=== PATIENT | female | born 1960 | race Caucasian/White ===

== ENCOUNTER 2019-12-14 18:25 | Emergency (ER) | payer OTHER, SELFPAY ==
[~2019-12-14 18:25] MED LIST: Iopamidol 370 76% 100 ML VIAL ONE
[2019-12-14] MEDS ORDERED: Fentanyl 100 MCG/2 ML VIAL ONE ×3 (19:09→21:06)
[2019-12-14] MEDS ORDERED: Ondansetron PF 4 MG/2 ML Vial ONE (19:09)
[2019-12-14] MEDS ORDERED: Sodium Chloride 0.9% 1,000 ML ONE ×2 (19:09→21:36)
[2019-12-14 19:18] LABS: PTT 25.7 sec (22.9-36.1); Prothrombin Time 12.9 sec (12.0-14.7)
[2019-12-14 19:27] LABS: Anisocytosis SLIGHT = 6-15 cells (100X) (0-5/hpf); Band 4 % (5-11); Hemoglobin 11.7 g/dL (12.0-16.0); Hypochromia SLIGHT = 6-15 cells (100X) (0-5/hpf); Lymphocytes 17 % (21-51); MDiff Complete? YES; Mean Corpuscular HGB CONC 32.5 g/dL (32.0-36.0); Mean Corpuscular Hemoglobin 29.5 pg (27.0-31.0); Mean Corpuscular Volume 90.7 fL (78.0-98.0); Mean Platelet Volume 8.7 fL (7.4-10.4); Monocytes 9 % (0-10); Neutrophil 70 % (42-75); Platelet Count 178 thou/uL (130-400); Platelet Morphology Comment Appears Adequate; RBC Distribution Width 12.2 % (11.5-14.5); Red Blood Cell (RBC) Count 3.97 mill/uL (4.20-5.40); White Blood Cell (WBC) Count 10.6 thou/uL (4.8-10.8)
[2019-12-14 19:29] LABS: ALT (SGPT) 15 U/L (8-55); AST (SGOT) 26 U/L (5-34); Alcohol Less than 10 mg/dL (Less than 10); Alkaline Phosphatase 80 U/L (40-110); Anion Gap 16 mmol/L (10-20); BUN (Urea Nitrogen) 10 mg/dL (9.8-20.1); Bilirubin, Total 0.4 mg/dL (0.2-1.2); Calc. Creatinine Clearance 0 mL/min (70-130); Calcium 9.1 mg/dL (7.8-10.44); Carbon Dioxide 27 mmol/L (22-29); Chloride 100 mmol/L (98-107); Glucose 139 mg/dL (70-105); Potassium 4.3 mmol/L (3.5-5.1); Sodium 139 mmol/L (136-145)
--- NOTE | 2019-12-14 19:29 | RAD ---
PORTABLE CHEST: History: GI bleed. FINDINGS: Heart size and mediastinum are within normal limits. The lungs are clear of any infiltrative process. IMPRESSION: No active intrathoracic disease. POS: OFF
--- NOTE | 2019-12-14 21:00 | CT ---
CT ABDOMEN AND PELVIS WITH IV CONTRAST: History: Abdominal pain, GI bleeding. Comparison: 11-03-18 FINDINGS: There are small patchy areas of ground glass opacities in the right middle lobe. The patient is post cholecystectomy. There is nodularity of the liver surface suspicious for liver cirrhosis. The spleen measures 12.5 cm in AP dimension. The pancreas, adrenal glands, and kidneys appear normal. No free air, free fluid or lymphadenopathy is seen in the abdomen or pelvis. The small bowel loops ar e not abnormally dilated. There is thickening of the wall of the colon. There are a few prominent per iaortic lymph nodes measuring up to 7 mm in the aortocaval window. There are degenerative changes of the spine. IMPRESSION: 1. Mild ground glass opacities in the right middle lobe. 2. Cirrhosis of the liver. 3. Borderline splenomegaly. 4. Chronic wall thickening should be evaluated with colonoscopy. POS: [facility]
[2019-12-14] MEDS ORDERED: methylPREDNISolone Sod Succ/PF 125 MG/2 ML VIAL ONE (21:36)
[2019-12-14] MEDS ORDERED: Lorazepam 2 MG/ML VIAL ONE (22:12)
== END 2019-12-14 23:23 | disposition short-term general hospital (02) ==
LOC: MADERS 18:25
DX: K51.90 Ulcerative colitis, unspecified, without complications (principal); R41.82 Altered mental status, unspecified; R00.0 Tachycardia, unspecified; E03.9 Hypothyroidism, unspecified; K21.9 Gastro-esophageal reflux disease without esophagitis; I10 Essential (primary) hypertension; F17.210 Nicotine dependence, cigarettes, uncomplicated; Z79.82 Long term (current) use of aspirin; Z79.899 Other long term (current) drug therapy
CPT/HCPCS: 71045; 74177; 80053; 80307; 84484; 85025; 85610; 85730; 93005; 96361; 96374; 96375; 96376; J2060; J2405; J2930; J3010; J7050; Q9967